=== PATIENT | female | born 1945 | race Caucasian/White ===

== ENCOUNTER → 2018-07-21 10:20 | Outpatient (CLI) | payer MEDICARE, OTHER, SELFPAY ==
--- NOTE | 2018-07-21 10:25 | DI.MG.S_ITS ---
BILATERAL DIGITAL SCREENING MAMMOGRAM 3D/2D WITH CAD: 07/21/2018 CLINICAL: Routine screening. Family history of breast cancer. Comparison is made to exams dated: 11/28/2014 mammogram, 12/02/2013 mammogram, and 11/30/2012 mammogram - [facility]. There are scattered fibroglandular elements in both breasts. Current study was also evaluated with a Computer Aided Detection (CAD) system. No significant masses, calcifications, or other findings are seen in either breast. There has been no significant interval change. IMPRESSION: NEGATIVE There is no mammographic evidence of malignancy. A 1 year screening mammogram is recommended. This exam was interpreted at Station ID: [id number]. NOTE: For mammograms, a report in lay terms will be sent to the patient. Approximately 15% of breast malignancies will not be visualized mammographically. In the management of a palpable breast mass, a negative mammogram must not discourage biopsy of a clinically suspicious lesion. Electronically Signed By: Juan J faulkner/edin:07/21/2018 16:44:02 letter sent: Normal Exam ACR BI-RADS Category 1: Negative 3341F
== END ==
PROVIDERS: Family Provider Family Medicine; PCP Family Medicine; Visit Provider Family Medicine
DX: Z12.31 Encounter for screening mammogram for malignant neoplasm of breast (principal); Z80.3 Family history of malignant neoplasm of breast
CPT/HCPCS: 77063; 77067

== ENCOUNTER → 2020-11-22 11:06 | Outpatient (CLI) | payer MEDICARE, OTHER, SELFPAY ==
[2020-11-22 19:55] LABS: Alanine Aminotransferase 35 IU/L (<35); Albumin 3.8 g/dL (3.5-5.0); Albumin Globulin Ratio 1.4 (1.0-2.8); Alkaline Phosphatase 67 U/L (38-126); Aspartate Aminotransferase 38 IU/L (14-36); BUN Creatinine Ratio 23.9 (6-22); Bilirubin Total 0.4 mg/dL (0.2-1.3); Blood Urea Nitrogen 16 mg/dL (7-17); Calcium 9.5 mg/dL (8.4-10.2); Carbon Dioxide 24 mmol/L (22-32); Chloride 106 mmol/L (98-107); Estimated Glomerular Filt Rate > 60.0 mL/min (>60); Globulin 2.7 g/dL (1.7-4.1); Glucose 88 mg/dL (80-110); HEMOLYSIS < 15 (0-50); Magnesium 1.9 mg/dL (1.6-2.3); Potassium 4.4 mmol/L (3.4-5.1); Sodium 135 mmol/L (137-145); Total Protein 6.5 g/dL (6.3-8.2)
[2020-11-22 20:26] LABS: Thyroid Stimulating Hormone 0.817 uIU/mL (0.47-4.68)
== END ==
PROVIDERS: Family Provider Family Medicine; PCP Family Medicine; Visit Provider Nurse Practitioner Family
DX: I48.0 Paroxysmal atrial fibrillation (principal); Z22.1 Carrier of other intestinal infectious diseases
CPT/HCPCS: 80053; 83735; 84443

== ENCOUNTER → 2021-09-10 12:30 | Outpatient (CLI) | payer MEDICARE, OTHER, SELFPAY ==
[2021-09-10 19:16] LABS: Cholesterol 179 mg/dL (140-199); HDL Cholesterol 91 mg/dL (40-60); LDL Cholesterol Calculated 60 mg/dL (<100); Triglycerides 141 mg/dL (35-150)
[2021-09-10 19:17] LABS: Alanine Aminotransferase 32 IU/L (<35); Albumin 4.1 g/dL (3.5-5.0); Albumin Globulin Ratio 1.5 (1.0-2.8); Alkaline Phosphatase 59 U/L (38-126); Aspartate Aminotransferase 39 IU/L (14-36); BUN Creatinine Ratio 23.9 (6-22); Bilirubin Total 0.6 mg/dL (0.2-1.3); Blood Urea Nitrogen 17 mg/dL (7-17); Calcium 9.4 mg/dL (8.4-10.2); Carbon Dioxide 26 mmol/L (22-32); Chloride 106 mmol/L (98-107); Estimated Glomerular Filt Rate > 60.0 mL/min (>60); Globulin 2.8 g/dL (1.7-4.1); Glucose 85 mg/dL (80-110); HEMOLYSIS 18 (0-50); Magnesium 1.9 mg/dL (1.6-2.3); Potassium 4.1 mmol/L (3.4-5.1); Sodium 138 mmol/L (137-145); Total Protein 6.9 g/dL (6.3-8.2)
[2021-09-10 19:38] LABS: Thyroid Stimulating Hormone 1.59 uIU/mL (0.47-4.68)
== END ==
PROVIDERS: Nurse Practitioner Family; Family Provider Family Medicine; PCP Family Medicine; Visit Provider Family Medicine
DX: E78.5 Hyperlipidemia, unspecified (principal); I48.20 Chronic atrial fibrillation, unspecified; I48.0 Paroxysmal atrial fibrillation
CPT/HCPCS: 80053; 80061; 83735; 84443

== ENCOUNTER → 2021-10-26 09:20 | Outpatient (CLI) | payer MEDICARE, OTHER, SELFPAY ==
[2021-10-26 18:26] LABS: Add Manual Diff / Slide Review NO; Basophils Absolute Auto 0 /uL (0-100); Basophils Percent Auto 0.8 % (0-2); Eosinophils Absolute Auto 200 /uL (0-450); Eosinophils Percent Auto 2.9 % (2-4); Hemoglobin 14.1 g/dL (12.0-16.0); Lymphocytes Absolute Auto 900 /uL (1100-4500); Lymphocytes Percent Auto 16.8 % (25-40); Mean Corpuscular HGB Conc 34.3 % (30-36); Mean Corpuscular Hemoglobin 32.2 PG (26-34); Mean Corpuscular Volume 93.7 fL (80-100); Monocytes Absolute Auto 400 /uL (0-900); Monocytes Percent Auto 7.1 % (3-14); Neutrophils Absolute Auto 3700 /uL (1500-7000); Neutrophils Percent Auto 72.4 % (50-75); Platelet Count 191 X10^3/uL (150-400); Red Blood Cell Count 4.38 X10^6/uL (4.0-5.2); Red Cell Distribution Width 14.3 % (11.6-14.8); White Blood Cell Count 5.1 X10^3/uL (4.5-11.0)
[2021-10-26 18:32] LABS: Alanine Aminotransferase 37 IU/L (<35); Albumin Globulin Ratio 1.6 (1.0-2.8); Alkaline Phosphatase 62 U/L (38-126); Aspartate Aminotransferase 41 IU/L (14-36); BUN Creatinine Ratio 25.8 (6-22); Bilirubin Total 0.6 mg/dL (0.2-1.3); Blood Urea Nitrogen 17 mg/dL (7-17); Calcium 9.2 mg/dL (8.4-10.2); Carbon Dioxide 25 mmol/L (22-32); Chloride 106 mmol/L (98-107); Estimated Glomerular Filt Rate > 60 mL/min (>60); Globulin 2.5 g/dL (1.7-4.1); Glucose 92 mg/dL (80-110); HEMOLYSIS < 15 (0-50); Potassium 4.2 mmol/L (3.4-5.1); Sodium 138 mmol/L (137-145); Total Protein 6.5 g/dL (6.3-8.2)
== END ==
PROVIDERS: Family Provider Family Medicine; PCP Family Medicine; Referring Provider Physician Assistant; Visit Provider Physician Assistant
DX: Z87.19 Personal history of other diseases of the digestive system (principal); R53.83 Other fatigue; E78.5 Hyperlipidemia, unspecified; R74.01 Elevation of levels of liver transaminase levels
CPT/HCPCS: 80053; 85025

== ENCOUNTER → 2021-11-28 12:30 | Outpatient (CLI) | payer MEDICARE, OTHER, SELFPAY | PROVIDERS: Family Provider Family Medicine; PCP Physician Assistant; Referring Provider Physician Assistant; Visit Provider Physician Assistant | DX: M81.0 Age-related osteoporosis without current pathological fracture (principal); M85.851 Other specified disorders of bone density and structure, right thigh | CPT/HCPCS: 77080 ==

== ENCOUNTER → 2022-05-28 13:49 | Outpatient (CLI) | payer MEDICARE, OTHER, SELFPAY ==
[2022-05-28 20:02] LABS: Add Manual Diff / Slide Review NO; Basophils Absolute Auto 0 /uL (0-100); Basophils Percent Auto 0.5 % (0-2); Eosinophils Absolute Auto 100 /uL (0-450); Eosinophils Percent Auto 2.1 % (2-4); Hematocrit 42.9 % (36-46); Hemoglobin 14.2 g/dL (12.0-16.0); Lymphocytes Absolute Auto 1000 /uL (1100-4500); Mean Corpuscular HGB Conc 33.2 % (30-36); Mean Corpuscular Hemoglobin 31.8 PG (26-34); Monocytes Absolute Auto 400 /uL (0-900); Monocytes Percent Auto 6.8 % (3-14); Neutrophils Absolute Auto 3900 /uL (1500-7000); Neutrophils Percent Auto 71.6 % (50-75); Platelet Count 243 X10^3/uL (150-400); Red Blood Cell Count 4.46 X10^6/uL (4.0-5.2); Red Cell Distribution Width 15.2 % (11.6-14.8); White Blood Cell Count 5.4 X10^3/uL (4.5-11.0)
[2022-05-28 20:18] LABS: Alanine Aminotransferase 36 IU/L (<35); Albumin 4.2 g/dL (3.5-5.0); Albumin Globulin Ratio 1.3 (1.0-2.8); Alkaline Phosphatase 52 U/L (38-126); Aspartate Aminotransferase 55 IU/L (14-36); BUN Creatinine Ratio 22.7 (6-22); Blood Urea Nitrogen 15 mg/dL (7-17); Calcium 8.8 mg/dL (8.4-10.2); Carbon Dioxide 28 mmol/L (22-32); Chloride 102 mmol/L (98-107); Estimated Glomerular Filt Rate > 60 mL/min (>60); Globulin 3.2 g/dL (1.7-4.1); Glucose 86 mg/dL (80-110); Sodium 136 mmol/L (137-145); Total Protein 7.4 g/dL (6.3-8.2)
[2022-05-28 20:29] LABS: HEMOLYSIS 176 (0-50); Potassium 4.3 mmol/L (3.4-5.1)
== END ==
PROVIDERS: Family Provider Family Medicine; PCP Physician Assistant; Visit Provider Physician Assistant
DX: Z87.19 Personal history of other diseases of the digestive system (principal); R74.8 Abnormal levels of other serum enzymes
CPT/HCPCS: 80053; 85025

== ENCOUNTER → 2022-08-01 13:38 | Outpatient (CLI) | payer MEDICARE, OTHER, SELFPAY ==
[2022-08-01 19:32] LABS: Hemoglobin A1C% w Est Avg Glu 5.6 % (4.0-6.0)
[2022-08-01 20:20] LABS: Hepatitis B Surface Antigen NEGATIVE s/c (NEGATIVE)
[2022-08-01 20:33] LABS: Hep C Virus Ab w/Reflex Quant NEGATIVE s/c (NEGATIVE)
[2022-08-03 02:08] LABS: Hepatitis A Ab Total Negative (Negative)
[2022-08-03 04:09] LABS: Hepatitis B Core AB w/Reflex Negative (Negative)
== END ==
PROVIDERS: Family Provider Family Medicine; PCP Physician Assistant; Visit Provider Physician Assistant
DX: Z13.1 Encounter for screening for diabetes mellitus (principal); R74.8 Abnormal levels of other serum enzymes
CPT/HCPCS: 83036; 86704; 86708; 86803; 87340

== ENCOUNTER → 2023-01-02 13:00 | Outpatient (CLI) | payer MEDICARE, OTHER, SELFPAY ==
[2023-01-02 20:21] LABS: Alanine Aminotransferase 29 IU/L (<35); Albumin 3.8 g/dL (3.5-5.0); Albumin Globulin Ratio 1.2 (1.0-2.8); Alkaline Phosphatase 53 U/L (38-126); Aspartate Aminotransferase 55 IU/L (14-36); Bilirubin Total 0.4 mg/dL (0.2-1.3); Blood Urea Nitrogen 16 mg/dL (7-17); Calcium 8.9 mg/dL (8.4-10.2); Carbon Dioxide 30 mmol/L (22-32); Chloride 104 mmol/L (98-107); Estimated Glomerular Filt Rate > 60 mL/min (>60); Globulin 3.1 g/dL (1.7-4.1); Glucose 93 mg/dL (80-110); HEMOLYSIS 16 (0-50); Potassium 4.1 mmol/L (3.4-5.1); Sodium 138 mmol/L (137-145); Total Protein 6.9 g/dL (6.3-8.2)
== END ==
PROVIDERS: Family Provider Family Medicine; PCP Physician Assistant; Visit Provider Physician Assistant
DX: I48.0 Paroxysmal atrial fibrillation (principal); Z51.81 Encounter for therapeutic drug level monitoring; Z79.899 Other long term (current) drug therapy; R74.8 Abnormal levels of other serum enzymes
CPT/HCPCS: 80053

== ENCOUNTER → 2023-04-15 10:44 | Outpatient (CLI) | payer MEDICARE, OTHER, SELFPAY ==
--- NOTE | 2023-04-15 | DI.MG.S_ITS ---
UNILATERAL LEFT DIGITAL DIAGNOSTIC MAMMOGRAM 3D/2D WITH ADDITIONAL VIEWS: 04/15/2023 CLINICAL: Additional evaluation requested from prior study. Comparison is made to exams dated: 03/08/2023 mammogram, 03/11/2022 mammogram, 03/12/2021 mammogram - Outside facility, and 07/21/2018 mammogram - [facility]. There are scattered areas of fibroglandular density in the left breast (category b / 25%-50% glandular tissue). There is a 0.3 cm oval focal asymmetry with a circumscribed margin in the left breast at 8 o'clock posterior depth. This is seen in additional views. This is increased in size. No other significant masses or calcifications are seen in the breast. IMPRESSION: INCOMPLETE: NEEDS ADDITIONAL IMAGING EVALUATION The 0.3 cm oval focal asymmetry in the left breast resembles a cyst and is indeterminate. An ultrasound is recommended. Based on the Tyrer Cuzick model (a risk assessment model) the patient's lifetime risk is 4.7% and her 10 year risk is 0.0%. According to the ACR, ACS, and NCCN guidelines, an annual breast MRI exam along with mammogram is recommended if the patient's lifetime risk is 20% or greater. This exam was interpreted at Station ID: [id number]. NOTE: For mammograms, a report in lay terms will be sent to the patient. Approximately 15% of breast malignancies will not be visualized mammographically. In the management of a palpable breast mass, a negative mammogram must not discourage biopsy of a clinically suspicious lesion. Electronically Signed By: Artemio mckeon/edin:04/15/2023 21:11:38 ACR BI-RADS Category 0: Incomplete 3340F
--- NOTE | 2023-04-15 10:46 | DI.US.S_ITS ---
PROCEDURE: US ABDOMEN LIMITED INDICATIONS: elevated liver enzymes TECHNIQUE: Real-time scanning was performed of the abdominal and retroperitoneal organs, with image documentation. COMPARISON: None. FINDINGS: Liver: Liver is normal in size and homogeneous in echotexture. Gallbladder: No stones or sludge. Normal wall thickness. No pericholecystic fluid. Biliary ducts: Intrahepatic bile ducts are non-dilated. Extrahepatic bile duct caliber measures 4 mm. Normal is 6-7 mm or less in diameter, or 10 mm or less post-cholecystectomy. Pancreas: Hypoechoic mass in the pancreatic body measuring 2.4 x 1.4 x 1.7 cm with internal vascularity. IVC: Intrahepatic inferior vena cava is patent. Miscellaneous: No free abdominal fluid. IMPRESSION: 1. Hypoechoic mass in the pancreatic body measuring 2.4 x 1.4 x 1.7 cm which is indeterminate. Recommend a CT or MRI (pancreas mass protocol) for further evaluation. 2. Normal sonographic appearance of the liver. 3. No biliary ductal dilatation. Dictated by: Aguila Wahl M.D. on 04/15/2023 at 15:26 Approved by: Aguila Wahl M.D. on 04/15/2023 at 15:39
--- NOTE | 2023-04-15 10:46 | DI.US.S_ITS ---
LIMITED ULTRASOUND OF LEFT BREAST: 04/15/2023 CLINICAL: Patient returns today to evaluate a focal asymmetry in the left breast. Comparison is made to exams dated: 04/15/2023 mammogram - [facility], 03/08/2023 mammogram, 03/11/2022 mammogram, 03/12/2021 mammogram - Outside facility, and 07/21/2018 mammogram - [facility]. Real-time ultrasound of the left breast 8-9 o'clock region was performed. Damon scale images of the real-time examination were reviewed. No significant abnormalities were seen sonographically in the left breast. IMPRESSION: PROBABLY BENIGN There is no abnormality seen in the left breast to correspond with the mammography finding. A follow-up left mammogram and possible ultrasound in 6 months is recommended to demonstrate stability. This exam was interpreted at Station ID: [id number]. Electronically Signed By: Artemio Mirza M.D. ar/:04/15/2023 21:13:37 letter sent: Followup Recommended Ultrasound BI-RADS: 3 Probably benign
== END ==
PROVIDERS: Family Provider Family Medicine; PCP Family Medicine; Referring Provider Physician Assistant; Visit Provider Physician Assistant
DX: R92.8 Other abnormal and inconclusive findings on diagnostic imaging of breast (principal); Z80.3 Family history of malignant neoplasm of breast; K86.9 Disease of pancreas, unspecified; R74.8 Abnormal levels of other serum enzymes
CPT/HCPCS: 76642; 76705; 77065; 77066; G0279

== ENCOUNTER → 2023-04-25 10:49 | Outpatient (CLI) | payer MEDICARE, OTHER, SELFPAY ==
--- NOTE | 2023-04-25 | DI.MRI.S_ITS ---
PROCEDURE: MR AB PANCREATIC/MRCP PROTOCOL INDICATIONS: MASS OF PANCREAS TECHNIQUE: Coronal HASTE through the abdomen, axial 2-D FLASH in- and [id number], and breath-hold T2 FSE with fat saturation through the biliary system and pancreas. Oblique coronal and axial thin-slice HASTE, radial thick-slab HASTE centered on the extrahepatic bile ducts. Intravenous secretin: Not requested. COMPARISON: [facility], , ABDOMEN LIMITED, 04/15/2023, 12:53. FINDINGS: Image quality: Excellent. Pancreas and biliary system: Intra- and extra-hepatic biliary ducts are non dilated. Pancreas is normal in morphology, without adjacent soft tissue edema. Pancreatic duct is normal in caliber, without developmental anomalies. No pancreatic mass or cystic lesion. The abnormality seen on prior ultrasound corresponds to bowel. The distal stomach is immediately anterior to the pancreas and there are duodenal diverticuli. Gallbladder is distended. No pericholecystic fluid. No gallstones identified. Other solid organs: Liver is normal in size. Spleen is normal in size. No adrenal nodules. Both kidneys are normal in size, without hydronephrosis. Nodes and vessels: No retroperitoneal or mesenteric adenopathy by size criteria. Aorta and inferior vena cava are normal in size. Bowel and peritoneum: Right lower quadrant ostomy. Unenhanced bowel loops are normal in caliber. Colonic diverticuli. No free fluid. Lung bases: No basal pleural effusions. Heart size is normal. Bones and soft tissues: No ventral hernias. Bone marrow is of normal overall signal. IMPRESSION: 1. No pancreatic mass or cystic lesion. No suspicious enhancement. Abnormality seen on ultrasound is due to adjacent bowel. 2. No pancreatic or biliary ductal dilatation. 3. Right lower quadrant ostomy. Dictated by: Franky Call M.D. on 04/25/2023 at 13:38 Approved by: Franky Call M.D. on 04/25/2023 at 13:49
== END ==
PROVIDERS: Family Provider Family Medicine; PCP Family Medicine; Referring Provider Family Medicine; Visit Provider Family Medicine
DX: K86.89 Other specified diseases of pancreas (principal)
CPT/HCPCS: 74183; A9579

== ENCOUNTER → 2023-07-14 13:26 | Outpatient (CLI) | payer MEDICARE, OTHER, SELFPAY ==
[2023-07-14 20:10] LABS: Add Manual Diff / Slide Review NO; Basophils Absolute Auto 0 /uL (0-100); Basophils Percent Auto 0.8 % (0-2); Eosinophils Absolute Auto 100 /uL (0-450); Eosinophils Percent Auto 3.1 % (2-4); Hematocrit 42.1 % (36-46); Hemoglobin 14.1 g/dL (12.0-16.0); Lymphocytes Absolute Auto 1000 /uL (1100-4500); Lymphocytes Percent Auto 22.1 % (25-40); Mean Corpuscular HGB Conc 33.5 % (30-36); Mean Corpuscular Hemoglobin 32.9 PG (26-34); Monocytes Absolute Auto 400 /uL (0-900); Monocytes Percent Auto 9.3 % (3-14); Neutrophils Absolute Auto 3000 /uL (1500-7000); Neutrophils Percent Auto 64.7 % (50-75); Platelet Count 189 X10^3/uL (150-400); Red Cell Distribution Width 14.6 % (11.6-14.8); White Blood Cell Count 4.6 X10^3/uL (4.5-11.0)
[2023-07-14 20:11] LABS: HEMOLYSIS < 15 (0-50)
[2023-07-14 20:16] LABS: Alanine Aminotransferase 26 IU/L (<35); Albumin 3.9 g/dL (3.5-5.0); Albumin Globulin Ratio 1.5 (1.0-2.8); Alkaline Phosphatase 41 U/L (38-126); Aspartate Aminotransferase 34 IU/L (14-36); BUN Creatinine Ratio 26.3 (6-22); Bilirubin Total 0.6 mg/dL (0.2-1.3); Blood Urea Nitrogen 20 mg/dL (7-17); Calcium 9.3 mg/dL (8.4-10.2); Carbon Dioxide 27 mmol/L (22-32); Chloride 104 mmol/L (98-107); Estimated Glomerular Filt Rate > 60 mL/min (>60); Globulin 2.6 g/dL (1.7-4.1); Glucose 112 mg/dL (80-110); Potassium 3.9 mmol/L (3.4-5.1); Sodium 138 mmol/L (137-145); Total Protein 6.5 g/dL (6.3-8.2)
[2023-07-14 20:47] LABS: TSH w/ Reflex to FT4 1.05 uIU/mL (0.47-4.68)
[2023-07-14 22:51] LABS: LDL Cholesterol Direct 92 mg/dL (<100)
[2023-07-15 08:28] LABS: Vitamin D 25 Hydroxy (D3) 52.7 ng/mL (30.0-100.0)
== END ==
PROVIDERS: Family Provider Family Medicine; PCP Family Medicine; Visit Provider Family Medicine
DX: R74.8 Abnormal levels of other serum enzymes (principal); I48.0 Paroxysmal atrial fibrillation; M81.0 Age-related osteoporosis without current pathological fracture; Z79.01 Long term (current) use of anticoagulants; E78.5 Hyperlipidemia, unspecified
CPT/HCPCS: 80053; 82306; 83721; 84443; 85025

== ENCOUNTER → 2023-10-15 10:48 | Outpatient (CLI) | payer MEDICARE, OTHER, SELFPAY ==
--- NOTE | 2023-10-15 10:50 | DI.MG.S_ITS ---
UNILATERAL LEFT DIGITAL DIAGNOSTIC MAMMOGRAM 3D/2D: 10/15/2023 CLINICAL: Patient returns for a 6 month follow up of the left breast. Comparison is made to exams dated: 04/15/2023 mammogram - [facility], 03/08/2023 mammogram, 03/11/2022 mammogram, and 03/12/2021 mammogram - Outside facility. There are scattered areas of fibroglandular density in the left breast (category b / 25%-50% glandular tissue). There is a mass in the left breast at 9 o'clock posterior depth. No other significant masses or calcifications are seen in the breast. IMPRESSION: INCOMPLETE: NEEDS ADDITIONAL IMAGING EVALUATION The mass in the left breast is indeterminate. A targeted ultrasound of the left breast is recommended and will be performed immediately following this exam. Based on the Tyrer Cuzick model (a risk assessment model) the patient's lifetime risk is 4.7% and her 10 year risk is 0.0%. According to the ACR, ACS, and NCCN guidelines, an annual breast MRI exam along with mammogram is recommended if the patient's lifetime risk is 20% or greater. This exam was interpreted at Station ID: [id number]. NOTE: For mammograms, a report in lay terms will be sent to the patient. Approximately 15% of breast malignancies will not be visualized mammographically. In the management of a palpable breast mass, a negative mammogram must not discourage biopsy of a clinically suspicious lesion. Electronically Signed By: Bettie cosby/:10/15/2023 12:29:23 ACR BI-RADS Category 0: Incomplete 3340F
--- NOTE | 2023-10-15 10:50 | DI.US.S_ITS ---
LIMITED ULTRASOUND OF LEFT BREAST AND AXILLA: 10/15/2023 CLINICAL: Patient returns today to evaluate an asymmetry in the left breast. Comparison is made to exams dated: 10/15/2023 mammogram, 04/15/2023 ultrasound, 04/15/2023 mammogram - [facility], 03/08/2023 mammogram, and 03/11/2022 mammogram - Outside facility. Color flow and real-time ultrasound of the left breast 9 o'clock, and axilla regions were performed on the areas of interest. Damon scale images of the real-time examination were reviewed. There is a 0.2 cm x 0.2 cm x 0.2 cm mass in the left breast at 9 o'clock posterior depth. This mass displays internal echoes. This may correlate with mammography findings. The left axilla was interogated and normal appearing lymph nodes are visualized. IMPRESSION: SUSPICIOUS OF MALIGNANCY The 0.2 cm x 0.2 cm x 0.2 cm mass in the left breast is at a low suspicion for malignancy. Given the poor visualization sonographically, a stereotactic biopsy is recommended. This exam was interpreted at Station ID: [id number]. SUMMARY: This was discussed with the patient by the radiologist at the time of the exam. Electronically Signed By: Bettie cosby/:10/15/2023 13:05:55 letter sent: Biopsy Required Ultrasound BI-RADS: 4a Low suspicion for malignancy
== END ==
LOC: MAMMO 10:50
PROVIDERS: Family Provider Family Medicine; PCP Family Medicine; Referring Provider Family Medicine; Visit Provider Family Medicine
DX: R92.8 Other abnormal and inconclusive findings on diagnostic imaging of breast (principal); N63.25 Unspecified lump in the left breast, overlapping quadrants; R92.322 Mammographic fibroglandular density, left breast
CPT/HCPCS: 76642; 77065; G0279

== ENCOUNTER → 2023-11-13 11:16 | Outpatient (CLI) | payer MEDICARE, OTHER, SELFPAY ==
--- NOTE | 2023-11-13 11:19 | DI.MRI.S_ITS ---
BREAST MRI OF BOTH BREASTS: 11/13/2023 CLINICAL: New diagnosis of Breast Cancer. PROCEDURE: MR BREAST BI WO/W CON INDICATIONS: new left breast cancer, strong FHX TECHNIQUE: The patient was placed prone in a dedicated breast imaging coil. Precontrast axial STIR and 3D FLASH without fat saturation sequences were obtained. Both before and after bolus injection of contrast, sequential 1-minute axial 3D FLASH with fat saturation sequences for 3 time points, with subtraction images and maximum intensity projections (MIP's) generated. Delayed sagittal FLASH images with fat saturation were also obtained. Computer-aided detection, including computer algorithm analysis of MRI image data for lesion detection and characterization, pharmacokinetic analysis, with further physician review for interpretation, was performed. COMPARISON: Mammogram 11/04/2023, 10/15/2023, 04/15/2023. Breast ultrasound 10/15/2023 FINDINGS: Image quality: Diagnostic. There is scattered amount of fibroglandular tissue. There is minimal and symmetric background parenchymal enhancement. Right breast: There is no suspicious enhancement or lymphadenopathy. Left breast: In the left breast, lower inner quadrant at posterior depth, there is a biopsy clip with minimal surrounding enhancement corresponding to biopsy proven malignancy (described on prior mammogram at 9:00 posterior depth). No suspicious lymphadenopathy. IMPRESSION: KNOWN BIOPSY PROVEN MALIGNANCY Left breast biopsy proven malignancy in the lower inner quadrant at posterior depth corresponding to biopsy clip with minimal surrounding enhancement. No suspicious left lymphadenopathy. No MRI evidence of malignancy in the right breast. This exam was interpreted at Station ID: [id number]. Electronically Signed By: Isabella White M.D., Ph.D. eb/:11/14/2023 12:59:42 ACR BI-RADS Category 6: Known biopsy proven malignancy 3346F
== END ==
PROVIDERS: Family Provider Family Medicine; PCP Family Medicine; Referring Provider Family Medicine; Visit Provider Family Medicine
DX: C50.312 Malignant neoplasm of lower-inner quadrant of left female breast (principal)
CPT/HCPCS: 77049; A9579

== ENCOUNTER 2023-12-03 07:51 | Day surgery (SDC) | payer MEDICARE, OTHER, SELFPAY ==
[2023-12-01 12:38] VITALS: BMI 23.9
--- NOTE | 2023-12-03 | DI.MG.S_ITS ---
SPECIMEN LEFT BREAST: 12/03/2023 CLINICAL: Left breast specimen. Correlation is made to exams dated: 12/03/2023 localization, 12/03/2023 ultrasound, 11/13/2023 breast MRI - [facility], and 10/28/2023 stereotactic biopsy - [facility]. A specimen was imaged for the previous biopsy site located in the left breast at 9 o'clock posterior depth. This was described on the previous mammography report. IMPRESSION: SPECIMEN The imaged specimen includes the distal portion of the localization wire and does not include biopsy clip. This exam was interpreted at Station ID: [id number]. Lance ann/edin:12/03/2023 13:09:29
--- NOTE | 2023-12-03 | DI.MG.S_ITS ---
DIGITAL MAMMOGRAPHY GUIDED WIRE LOCALIZATION LEFT BREAST WITH POST DIGITAL MAMMOGRAPHIC IMAGIN12/03/2023 CLINICAL: Left breast wire localization. Correlation is made to exams dated: 10/28/2023 stereotactic biopsy - [facility], 10/15/2023 mammogram, 04/15/2023 mammogram - [facility], 03/08/2023 mammogram, and 03/11/2022 mammogram - Outside facility. A wire localization using digital mammography guidance was performed for the marker clip located in the left breast at 9 o'clock posterior depth. The skin was prepped in the usual manner. Local anesthetic was administered to the access site. A small incision was made in the breast. The localization was approached from the lateral aspect. A wire was inserted adjacent to the marker under digital mammography guidance. Post placement digital mammographic imaging demonstrates the tip demarcates the boundaries adjacent to the marker. IMPRESSION: WIRE LOCALIZATION Wire localization for the marker clip in the left breast at 9 o'clock posterior depth was successful with no apparent post procedure complications. This exam was interpreted at Station ID: [id number]. Lance ann/edin:12/03/2023 13:15:58
--- NOTE | 2023-12-03 | PATH_ITS ---
[facility] Accession Number: [id number] No. of containers..02 Tissue . 01 Material submitted: . PART A: breast - LEFT BREAST LUMP,SHORT SUPERIOR,LEFT LATERAL PART B: breast - LEFT BREAST LUMP,SEE COLOR CODED MARGIN MARKER . 01 Diagnosis: A. LEFT BREAST, LUMPECTOMY: Ductal carcinoma in situ, see CAP summary data below. . B. LEFT BREAST, LUMPECTOMY, RE-EXCISION: Ductal carcinoma in situ, see CAP summary data below. . . CASE SUMMARY (INVASIVE CARCINOMA OF BREAST: RESECTION 4.10.0.0) . Procedure: Excision: Specimen laterality: Left. Tumor site: 9 o'clock. Histologic type: Invasive ductal carcinoma, See comment. Histologic grade ([place] Histologic Score) Glandular/tubular differentiation: Score 2, per report. Nuclear pleomorphism: Score 2, per report. Mitotic rate: Score 1, per report. Overall grade: Grade 1, per report. Tumor size: Greatest dimension of largest invasive focus: 4 mm, per report (see comment). Tumor focality: Single focus of invasive carcinoma. . Ductal carcinoma in situ: Present. Negative for extensive intraductal component. Extent of DCIS: Estimated extent is at least 35 mm. Architectural patterns: Cribriform, solid. Nuclear grade: Grade 2 (intermediate). Necrosis: Present, central. Number of blocks with DCIS: 12. Number of blocks examined: 51. . Lymphatic and/or vascular invasion: Not identified. Microcalcifications: Present in nonneoplastic tissue. Treatment effect in the breast: No known presurgical therapy. . Margin status for invasive carcinoma: Not applicable (residual invasive carcinoma in specimen is absent). Margin status for DCIS: All margins negative for DCIS. Distance from DCIS to closest margin: 4 mm, anterior. Regional lymph node status: Not applicable. Distant metastasis: Not applicable. . pTNM Clssification (AJCC 8th Edition) pT category: pT1a (per report). pN category: pN not assigned. . Additional findings: Biopsy site changes present. . Breast biomarker testing performed on previous biopsy: ([id number], [employer]): Estrogen receptor status: Positive (3+, 100% of cells). Progesterone receptor status: Positive (3+, 70% of cells). HER2 status: Negative for HER2 overexpression (0+, 0% of cells). Ki-67: Intermediate (10-15%). [facility] 12/11/2023 1655 Local . 01 Comment: Only ductal carcinoma in situ is identified in the excision specimens. In block A17, there is a small discohesive collection of neoplastic cells at the edge of the tissue with features similar to the DCIS, and is favored to represent detached, fragmented DCIS. There is no definite evidence of invasive carcinoma. The information provided in the CAP summary data applicable to the invasive carcinoma is based on the patient's prior biopsy results collected 10/28/2023. . 01 Electronically signed: . Jen Greco MD, Pathologist NPI- [id number] . 01 Gross description: . A. Received: In formalin with two identifiers and left breast lump, short superior, long lateral. Specimen: An oriented left lumpectomy. Weight: 47 grams. Measurement: 7.0 cm superior to inferior, 6.1 cm anterior to posterior, 2.4 cm medial to lateral. Skin ellipse: Absent. Wire: Absent. Margins: Oriented by the surgeon with a short suture designating superior and a long suture designating lateral per the requisition, and inked as follows: anterior green, inferior blue, lateral orange, medial yellow, posterior black, superior red. Sliced: Superior to inferior into 11 slices. Lesions: No lesions or biopsy clips are identified. Other: The cut surfaces are yellow to white fibroadipose tissue with fibrous tissue occupying approximately 10% of the cut surface. Fixation: The specimen was removed on 12/03/2023, time not provided. Cold ischemic time cannot be calculated. Total fixation time is approximately 65 hours following additional fixation. Chief Steward/Stewardess sections are submitted as follows: A1-A2: Rep slice 1 perpendicular. A3: Rep slice 2. A4-A5: Composite slice 3. A6: Rep slice 4. A7-A8: Entire slice 5. A9: Rep slice 6. A10-A11: Composite slice 7. A12: Rep slice 8. A13-A14: Composite slice 9. A15: Rep slice 10. A16-A17: Rep slice 11 perpendicular. Additional sections are submitted as follows: A18: Remaining slice 8. A19-A20: Remaining slice 10. A21-A23: Remaining slice 11 perpendicular. ([id number]) . B. Received: In formalin with two identifiers and left breast lump. Specimen: A previously inked left lumpectomy. Weight: 44 grams. Measurement: 11.1 cm from superior to inferior, 4.5 cm medial to lateral, 2.4 cm anterior to posterior. Wire: Present, minimally attached at the edge of the medial margin inserted inferiorly and terminating superiorly. Margins: Inked by the surgeon as follows: anterior green, inferior blue, lateral orange, medial yellow, posterior black, superior red. Inking reinforced at the bench. Sliced: From superior to inferior into 16 slices. Lesion: Despite an extensive search, no lesion can be definitively identified and no biopsy clip is identified. Other: The cut surfaces are yellow to white fibroadipose tissue with fibrous tissue occupying less than 10% of the cut surface. Fixation: The specimen was removed on 12/03/2023, time not provided. Cold ischemic time cannot be calculated. Total fixation time is approximately 65 hours following additional fixation. Specimen is submitted entirely as follows: B1-B2: Entire slice 1 perpendicular. B3-B9: Intact slices 2-8 sequential. B10-B11: Composite slice 9. B12-B13: Composite slice 10. B14-B15: Composite slice 11. B16-B17: Composite slice 12. B18-B19: Composite slice 13. B20-B21: Composite slice 14. B22-B24: Composite slice 15. B26-B28: Entire slice 16 perpendicular. ([id number]) /MRV 12/09/2023 1726 Local . 01 Microscopic: . Immunohistochemical stains were performed on blocks A15, A17, A19, A23, and B25, to characterize cells of interest. Myosin and p63 stains on these blocks highlight myoepithelial cells surrounding cells of interest, consistent with ductal carcinoma in situ. There is no definite evidence of invasive carcinoma. All control stains showed appropriate reactivity. . * This test was developed and its performance characteristics determined by [facility]. It has not been cleared or approved by the U.S. Food and Drug Administration. The FDA has determined that such clearance or approval is not necessary. This test is used for clinical purposes. It should not be regarded as investigational or for research. . 01 Pathologist provided ICD-10: C50.919 . 01 CPT . 631479, 337057, U97462, E58516 Specimen Comment: A courtesy copy of this report has been sent to [phone] Performed at: [address] [address], [place], [place] [id number] MD Juan J Carrero MD Phone: [phone]
[2023-12-03 08:30] VITALS: BP 128/81; PULSE 74; RESP 16; TEMP 36.2; O2SAT 97
--- NOTE | 2023-12-03 08:48 | PM.PREOP ---
Pre-operative Note Interval Note History & Physical reviewed/Exam performed by Physician: Yes Changes to H&P: No
[2023-12-03 08:53] VITALS: BMI 23.9
--- NOTE | 2023-12-03 09:07 | SUR.PREOP ---
0900 - Pt to radiology via wheelchair.
[2023-12-03] MEDS: CLINDAMYCIN 900 MG/50 ML PIGGYBACK 50 MG IV (11:28)
--- NOTE | 2023-12-03 11:40 | SUR.OPER ---
Supine on padded OR bed, head on pillow, arms secured on padded arm boards at <90 degrees abduction, legs uncrossed, safety belt at thigh, tape over blanket over lower legs.
[2023-12-03] MEDS: BUPIVACAINE 0.25% (PF) VIAL 30 ML INJ (12:02)
[2023-12-03 12:31] VITALS: BP 122/71; PULSE 72; RESP 15; TEMP 36.1; O2SAT 95
[2023-12-03 12:41] VITALS: BP 118/83; PULSE 67; RESP 15; O2SAT 94
--- NOTE | 2023-12-03 12:41 | PM.OP.1 ---
Operative Date/Time/Diagnoses Date of procedure: 12/03/23 Time of procedure: 12:41 Pre-op diagnosis: Left breast cancer Post-op diagnosis: same Procedure & Clinicians Procedure: Left lumpectomy Same procedure as scheduled: Yes Indications: 78 y.o woman with 0.4cm hormone positive HER2 negative low grade breast cancer. Surgeon: Estiven Dial [employer]ocational [employer] Education Teacher: Reyes Garcia Anesthesia Type: General Operative Notes Findings: Clip within the second specimen. Wire within the first specimen without the clip Specimen(s): other (left breast tissue) Estimated Blood Loss (mL): 30 Procedure in detail: The patient underwent needle localized prior to the operation. They were brought to the operating room and placed supine on the table. Bilateral lower extremity compression devices were applied. They were intubated with an LMA. They were prepped and draped in sterile fashion. Time-out was performed. A curvilinear incision on the inferior aspect of the left breast was made and subcutaneous tissues were divided. The localizing wire was identified and then brought back within the incision. The end of the wire was identified without a associated mass. Tissue surrounding the end of the wire was excised using electrocautery. The specimen was marked as follows Anterior Green Inferior Blue Lateral [place] Medial Yellow Posterior Black Superior Red Specimen was then passed off the field and sent to Radiology. The wire was identified within the in the tissue but not the clip. Careful inspection of the remaining breast tissue was made masses known to be less than half of a cm and was not palpable. We therefore excised further breast tissue within the medial aspect of the breast which was marked short stitch superior long stitch lateral. Within this additional specimen in the clip was identified. The subcutaneous tissue was then reapproximated with Vicryl. The skin was closed with Monocryl followed by application of Dermabond. The sponge and instrument count was correct. They emerged from anesthesia and were transfered to recovery in stable condition. Complications: none Post-operative Condition: stable Disposition: same day surgery
[2023-12-03] MEDS: OXYCODONE IR 5 MG TABLET PO ×2 (12:47→13:23)
[2023-12-03 12:55] VITALS: BP 119/65; BP 126/84; PULSE 69; PULSE 71; RESP 14; RESP 15; TEMP 37.1; O2SAT 95
[2023-12-03 13:03] VITALS: BP 137/61; PULSE 102; RESP 17; TEMP 36.9; O2SAT 97
== END 2023-12-03 13:32 | disposition home or self-care (01) ==
PROVIDERS: Family Provider Family Medicine; PCP Family Medicine; Referring Provider Surgery; Visit Provider Surgery
PROC: (CPT 19125; principal; 2023-12-03 10:00)
DX: C50.912 Malignant neoplasm of unspecified site of left female breast (principal); Z17.0 Estrogen receptor positive status [ER+]
CPT/HCPCS: 19125; 19281; 76098; 76642; 85610; C1819; J1100; J2405; J2704; J3010

== ENCOUNTER → 2024-01-12 11:26 | Outpatient (CLI) | payer MEDICARE, OTHER, SELFPAY ==
[2024-01-12 20:23] LABS: Alanine Aminotransferase 33 IU/L (<35); Albumin 4.2 g/dL (3.5-5.0); Albumin Globulin Ratio 1.6 (1.0-2.8); Alkaline Phosphatase 36 U/L (38-126); Aspartate Aminotransferase 39 IU/L (14-36); BUN Creatinine Ratio 27.6 (6-22); Bilirubin Total 0.6 mg/dL (0.2-1.3); Blood Urea Nitrogen 21 mg/dL (7-17); Calcium 8.9 mg/dL (8.4-10.2); Carbon Dioxide 23 mmol/L (22-32); Chloride 109 mmol/L (98-107); Estimated Glomerular Filt Rate > 60 mL/min (>60); Globulin 2.6 g/dL (1.7-4.1); Glucose 98 mg/dL (80-110); Potassium 4.1 mmol/L (3.4-5.1); Sodium 139 mmol/L (137-145); Total Protein 6.8 g/dL (6.3-8.2)
[2024-01-12 20:28] LABS: HEMOLYSIS 52 (0-50)
[2024-01-12 20:29] LABS: Hematocrit 43.9 % (36-46); Hemoglobin 14.6 g/dL (12.0-16.0); Mean Corpuscular HGB Conc 33.3 % (30-36); Mean Corpuscular Hemoglobin 32.9 PG (26-34); Mean Corpuscular Volume 98.8 fL (80-100); Platelet Count 186 X10^3/uL (150-400); Red Blood Cell Count 4.45 X10^6/uL (4.0-5.2); Red Cell Distribution Width 14.8 % (11.6-14.8); White Blood Cell Count 4.9 X10^3/uL (4.5-11.0)
[2024-01-12 20:40] LABS: LDL Cholesterol Direct 97 mg/dL (<100)
[2024-01-12 20:43] LABS: Add Manual Diff / Slide Review YES
[2024-01-12 21:41] LABS: Neutrophils Absolute Manual 3087 /uL (3000-5900); Total Cells Counted 100
[2024-01-12 21:44] LABS: Smudge Cells 1+
[2024-01-12 21:46] LABS: Vitamin D 25 Hydroxy (D3) 56.7 ng/mL (30.0-100.0)
[2024-01-12 22:00] LABS: TSH w/ Reflex to FT4 0.89 uIU/mL (0.47-4.68)
== END ==
PROVIDERS: Family Provider Family Medicine; PCP Family Medicine; Visit Provider Family Medicine
DX: I48.0 Paroxysmal atrial fibrillation (principal); M81.0 Age-related osteoporosis without current pathological fracture; E78.5 Hyperlipidemia, unspecified; Z93.2 Ileostomy status; Z79.01 Long term (current) use of anticoagulants
CPT/HCPCS: 80053; 82306; 83721; 84443; 85007; 85025

== ENCOUNTER → 2024-02-17 10:46 | Outpatient (CLI) | payer MEDICARE, OTHER, SELFPAY ==
--- NOTE | 2024-02-17 10:47 | DI.RAD.S_ITS ---
PROCEDURE: XR DEXA AXIAL SKELETON INDICATIONS: osteoporosis COMPARISON: [facility], CR, XR DEXA AXIAL SKELETON, 11/28/2021, 13:11. FINDINGS: Lumbar Spine: Bone mineral density is 0.658 g/cm2, T score -3.5. Since the most recent prior study, there has been no statistically significant change in bone mineral density. Left Hip: Bone mineral density is 0.634 g/cm2, T score -2.5. Prior DEXA was performed using dissimilar scan type or analysis method. Left Femoral Neck: Bone mineral density 0.580 g/cm2, T score -2.4. Right Hip: Bone mineral density 0.650 g/cm2, T score -2.4. Prior DEXA was performed using dissimilar scan type or analysis method. Right Femoral Neck: Bone mineral density is 0.624 g/cm2, T score -2.0. Fracture Risk Calculation (when applicable): FRAX score not reported due to T-score less than -2.5. (T score greater or equal to -1.0 to: NORMAL) (T score from -1.1 to -2.4: OSTEOPENIA) (T score less than or equal to -2.5: OSTEOPOROSIS) IMPRESSION: By WHO criteria, patient has osteoporosis. Follow-up guidelines as follows: Osteoporosis: Consider a repeat DEXA and Vertebral Fracture Assessment (VFA) exam in 2 years or sooner if medically necessary, to reassess this patient's status. Osteopenia: Consider a repeat DEXA in 2-3 years to reassess this patient's status, or if there is a new clinical indication. Normal: Consider a repeat DEXA in 5 years or sooner, or if there is a new clinical indication. All treatment decisions require clinical judgment and consideration of individual patient factors, including patient preferences, comorbidities, previous drug use, risk factors not captured in the FRAX model (e.g., frailty, falls, vitamin D deficiency, increased bone turnover, interval significant decline in bone density ) and possible under- or over-estimation of fracture risk by FRAX. In addition, the NOF Guide recommends that FDA-approved medical therapies be considered in postmenopausal women and men age >= 50 years with a: * Hip or vertebral (clinical or morphometric) fracture * T-score of <=-2.5 at the spine or hip * Ten-year fracture probability by FRAX of >= 3% for hip fracture or >=20% for major osteoporotic fracture. People with diagnosed cases of osteoporosis or at high risk for fracture should have regular bone mineral density tests. For patients eligible for Medicare, routine testing is allowed once every 2 years. The testing frequency can be increased to one year for patients who have rapidly progressing disease, those who are receiving or discontinuing medical therapy to restore bone mass, or have additional risk factors. Dictated by: Artemio Mirza M.D. on 02/17/2024 at 21:59 Approved by: Artemio Mirza M.D. on 02/17/2024 at 22:02
== END ==
PROVIDERS: Family Provider Family Medicine; PCP Family Medicine; Referring Provider Family Medicine; Visit Provider Family Medicine
DX: M81.0 Age-related osteoporosis without current pathological fracture (principal)
CPT/HCPCS: 77080

== ENCOUNTER → 2024-08-05 13:34 | Outpatient (CLI) | payer MEDICARE, OTHER, SELFPAY ==
[2024-08-05 22:17] LABS: Hematocrit 44.1 % (36-46); Hemoglobin 14.6 g/dL (12.0-16.0); Mean Corpuscular HGB Conc 33.2 % (30-36); Mean Corpuscular Hemoglobin 32.2 PG (26-34); Mean Corpuscular Volume 96.9 fL (80-100); Platelet Count 168 X10^3/uL (150-400); Red Blood Cell Count 4.55 X10^6/uL (4.0-5.2); Red Cell Distribution Width 14.7 % (11.6-14.8)
[2024-08-05 22:42] LABS: Neutrophils Absolute Manual 3250 /uL (3000-5900); RBC Morphology Normal Morphology; Total Cells Counted 100
[2024-08-05 22:46] LABS: Alanine Aminotransferase 39 IU/L (<35); Albumin 4.1 g/dL (3.5-5.0); Albumin Globulin Ratio 1.6 (1.0-2.8); Alkaline Phosphatase 57 U/L (38-126); Aspartate Aminotransferase 46 IU/L (14-36); Bilirubin Total 0.6 mg/dL (0.2-1.3); Bilirubin Unconjugated 0.4 mg/dL (0.0-1.1); Globulin 2.5 g/dL (1.7-4.1); HEMOLYSIS 28 (0-50); Total Protein 6.6 g/dL (6.3-8.2)
== END ==
PROVIDERS: PCP Family Medicine; Visit Provider Family Medicine
DX: R79.89 Other specified abnormal findings of blood chemistry (principal); R74.8 Abnormal levels of other serum enzymes; Z79.01 Long term (current) use of anticoagulants
CPT/HCPCS: 80076; 85025

== ENCOUNTER → 2024-12-10 11:05 | Outpatient (CLI) | payer MEDICARE, OTHER, SELFPAY ==
--- NOTE | 2024-12-10 11:08 | DI.US.S_ITS ---
MM diagnostic mammo BI, US breast LT limited: 12/10/2024 BI-RADS: 4B CLINICAL: 79-year old female for bilateral diagnostic mammogram and left diagnostic breast ultrasound. The patient presents for routine post-lumpectomy imaging. No Tyrer-Cuzick risk score calculation due to the patient's personal history of breast cancer. Patient reports a history of left breast carcinoma diagnosed at age 78. Status-post left lumpectomy. Current reported family history of breast cancer: sister. The patient had a prior left breast biopsy. PRIOR EXAMS 12/03/2023, 11/13/2023, 10/28/2023, 10/15/2023, 04/15/2023, 07/21/2018. MAMMOGRAPHY TECHNIQUE: 2D and 3D (tomosynthesis) digital mammographic views obtained, with additional images as needed for full coverage. Current study was also evaluated with a Computer Aided Detection (CAD) system. ULTRASOUND TECHNIQUE TARGETED Left Breast Ultrasound: Real-time ultrasound exam was performed focused to area of clinical and/or imaging concern. Real-time georges scale and color doppler imaging of the area of clinical interest was performed with image documentation. DENSITY B. There are scattered areas of fibroglandular density. MAMMOGRAPHY FINDINGS Right: No suspicious mass, asymmetry, microcalcification, or other abnormality seen. Left: Inner at 9:00, Middle depth, measuring 0.5cm: There is an oval mass present that has increased in size. Left: Post-surgical changes are present. ULTRASOUND FINDINGS Left: Inner at 9:00, Retroareolar, 2 cm from nipple, measuring 0.6 x 0.5 x 0.4 cm: There is an irregularly shaped, indistinct, hypoechoic mass that is non- parallel. The mass has increased in size. Doppler shows no vascularity. Left: Inner at 8:30, 5 cm from nipple, measuring 0.4 x 0.3 x 0.3 cm: There is a new oil cyst. Left: No abnormal lymph nodes are seen in the axilla. IMPRESSION: Right * No evidence of malignancy. Left (Mass): Inner at 9:00, Retroareolar, 2 cm from nipple, measuring 0.6 x 0.5 x 0.4 cm * Moderate Suspicion of Malignancy. RECOMMENDATIONS Left: Inner at 9:00, Retroareolar, 2 cm from nipple * Ultrasound-guided biopsy for further evaluation. OVERALL ASSESSMENT CATEGORY BI-RADS-4: Suspicious. ELECTRONICALLY SIGNED: Franky Call M.D. on 12/10/2024 at 03:17:17 PM PT Interpreting Station ID: [id number]
== END ==
PROVIDERS: PCP Family Medicine; Referring Provider Family Medicine; Visit Provider Family Medicine
DX: C50.912 Malignant neoplasm of unspecified site of left female breast (principal); N63.25 Unspecified lump in the left breast, overlapping quadrants; N60.02 Solitary cyst of left breast; Z85.3 Personal history of malignant neoplasm of breast; Z80.3 Family history of malignant neoplasm of breast; Z98.890 Other specified postprocedural states
CPT/HCPCS: 76642; 77066; G0279

== ENCOUNTER → 2025-02-24 12:58 | Outpatient (CLI) | payer MEDICARE, OTHER, SELFPAY ==
[2025-02-24 19:53] LABS: Hematocrit 42.7 % (36-46); Hemoglobin 14.6 g/dL (12.0-16.0); Mean Corpuscular HGB Conc 34.3 % (30-36); Mean Corpuscular Hemoglobin 33.2 PG (26-34); Mean Corpuscular Volume 96.9 fL (80-100); Platelet Count 237 X10^3/uL (150-400)
[2025-02-24 19:56] LABS: Alanine Aminotransferase 26 IU/L (<35); Albumin 4.0 g/dL (3.5-5.0); Albumin Globulin Ratio 1.5 (1.0-2.8); Alkaline Phosphatase 63 U/L (38-126); Blood Urea Nitrogen 18 mg/dL (7-17); Calcium 9.3 mg/dL (8.4-10.2); Carbon Dioxide 21 mmol/L (22-32); Chloride 106 mmol/L (98-107); Cholesterol 187 mg/dL (140-199); Estimated Glomerular Filt Rate > 60 mL/min (>60); Globulin 2.7 g/dL (1.7-4.1); Glucose 86 mg/dL (70-99); HDL Cholesterol 87 mg/dL (40-60); HEMOLYSIS 44 (0-50); Potassium 4.2 mmol/L (3.4-5.1); Sodium 136 mmol/L (137-145); Total Protein 6.7 g/dL (6.3-8.2); Triglycerides 89 mg/dL (35-150)
[2025-02-24 20:14] LABS: Vitamin D 25 Hydroxy (D3) 59.2 ng/mL (30.0-100.0)
[2025-02-24 20:28] LABS: Thyroid Stimulating Hormone 0.712 uIU/mL (0.47-4.68)
[2025-02-24 20:32] LABS: Ferritin 187 ng/mL (11-264)
[2025-02-24 20:39] LABS: Band Neutrophils Percent 3.0 % (3-7); Eosinophils Percent Manual 1.0 % (2-4); Lymphocytes Percent Manual 24.0 % (25-45); Monocytes Percent Manual 4.0 % (2-11); Neutrophils Absolute Manual 3905 /uL (3000-5900); RBC Morphology Normal Morphology; Segmented Neutrophils Percent 68.0 % (38-70); Total Cells Counted 100
== END ==
PROVIDERS: PCP Family Medicine; Visit Provider Family Medicine
DX: R79.89 Other specified abnormal findings of blood chemistry (principal); M81.0 Age-related osteoporosis without current pathological fracture; Z85.3 Personal history of malignant neoplasm of breast; I48.0 Paroxysmal atrial fibrillation; K50.119 Crohn's disease of large intestine with unspecified complications; Z79.01 Long term (current) use of anticoagulants; R03.0 Elevated blood-pressure reading, without diagnosis of hypertension; Z86.2 Personal history of diseases of the blood and blood-forming organs and certain disorders involving the immune mechanism; E78.2 Mixed hyperlipidemia
CPT/HCPCS: 80053; 80061; 82306; 82728; 84443; 85025

== ENCOUNTER → 2025-03-29 07:17 | Outpatient (CLI) | payer MEDICARE, OTHER, SELFPAY ==
--- NOTE | 2025-03-29 07:19 | DI.NM.S_ITS ---
PROCEDURE: NM ALINE PERF SPECT R&S PHARM Rest and pharmacological stress myocardial perfusion SPECT with gated imaging and ejection fraction RADIOPHARMACEUTICAL: 11.5 mCi Tc-99m tetrafosmin IV at rest and 25.9 mCi Tc-99m tetrafosmin IV at peak effect of pharmacological stress. Dwq-krh-lozjezkr was performed. INDICATIONS: PReOP for lumpectomy breast cancer TECHNIQUE: Radiopharmaceutical was injected at peak stress test, and also at rest. SPECT images were obtained. SPECT myocardial perfusion images were displayed in short axis, horizontal long axis, and vertical long axis views. Gated images were reviewed using [employer] software. COMPARISON: None. CARDIAC STRESS: A pharmacologic stress test was performed under the supervision of an attending staff, using an infusion of lexiscan 0.4mg IV X1. Hemodynamic data: There is normal blood pressure and heart rate response to pharmacologic stress. Symptoms: The patient denied anginal chest pain. Aminophylline: none EKG: No diagnostic changes of ischemia; no ectopy. FINDINGS: Raw data: There is good myocardial uptake of radiotracer. No significant motion artifacts. Qmgl-mk-gqpmr ratio is 0.21 (normal is less than 0.38 for tetrafosmin tracer). Left ventricle function: Gated images demonstrate normal left ventricular wall thickening. No segmental wall motion abnormalities. No transient ischemic dilation; TID is 0.85 (normal less than 1.3). Left ventricle resting end diastolic volume is 52 mL. Left ventricle stress ejection fraction is 96%; normal range is above 45%. Myocardial perfusion: There is normal distribution of activity in the right and left ventricular myocardium. No fixed or reversible perfusion defects. SSS 0. IMPRESSION: Low risk, normal pharm nuclear stress test from inducible ischemia standpoint. Normal left ventricular size, wall motion, and systolic function. No angina during the study. Dictated by: Moisés Feliz MD on 03/30/2025 at 12:38 Approved by: Moisés Feliz MD on 03/30/2025 at 12:41
--- NOTE | 2025-03-29 07:19 | DI.ECHO.S_ITS ---
[facility] : : [address] : [address] [address] : : [id number] : : Phone: [phone] Echocardiogram Report + + :Name: DARIA HOUSTON Study Date: 03/29/2025 Height: 61 in : :Hospital ReadingLocation: Weight: 127 lb : : Gender: Female BSA: 1.6 m2 : :: 1945 Age: 79 yrs BP: 129/88 mmHg: :Reason For Study: PREOP CLEARANCE : :Ordering Physician: MADY, : :GABINO Performed By: Margarito Dent : :Referring: GABINO EARL : + + Interpretation Summary The ejection fraction is estimated to be 65-70%. The left atrium is moderately dilated. There is mild tricuspid regurgitation. The right ventricular systolic pressure is estimated to be at least 47 mmHg based on an estimated right atrial pressure of 8 mm Hg. Procedure: A two-dimensional transthoracic echocardiogram with color flow and Doppler was performed. The study quality was technically adequate. Comparison is made with the echocardiogram of 07/02/2016. The patient was in normal sinus rhythm during the exam. Left Ventricle: The left ventricle is normal in size. Left ventricular wall thickness is borderline increased. There is no ventricular septal defect visualized. The ejection fraction is estimated to be 65-70%. There are no focal wall motion abnormalities. Diastolic parameters suggest probable normal left ventricular diastolic function and normal filling pressures. Right Ventricle: The right ventricle is normal in size and function. Atria: The left atrium is moderately dilated. Right atrial size is normal. There is no Doppler evidence for an interatrial shunt. Mitral Valve: There is moderate mitral annular calcification. The mitral valve leaflets appear mildly thickened. The mitral valve leaflets are mildly calcified. There is trace mitral regurgitation. Aortic Valve: The aortic valve is trileaflet. The aortic valve opens well. No aortic regurgitation is present. Tricuspid Valve: The tricuspid valve leaflets are thin and pliable. There is mild tricuspid regurgitation. The right ventricular systolic pressure is estimated to be at least 47 mmHg based on an estimated right atrial pressure of 8 mm Hg. Pulmonic Valve: The pulmonic valve leaflets are thin and pliable; valve motion is normal. There is trace pulmonic regurgitation. Great Vessels: The aortic root is normal size. The ascending aorta is mildly enlarged. The pulmonary artery is normal size. The IVC is dilated (diameter is greater than 2.1 cm) yet it collapses greater than 50% with a sniff. This suggests a right atrial pressure of 8 mm Hg. Pericardium/ Pleura There is no pericardial effusion. There is no pleural effusion. MMode/2D Measurements & Calculations LVIDd: 2.9 cm LVOT diam: 2.0 cm LVIDs: 1.7 cm Ao root diam: 3.3 cm FS: 42.1 % asc Aorta Diam: 4.0 cm EPSS: 0.68 cm IVSd: 1.1 cm LVPWd: 0.89 cm LV gaming. diameter/BSA (cm/m^2): 1.9 LV sys. diameter/BSA (cm/m^2): 1.1 LA A2 area: 22.5 cm2 RA long axis: 5.3 cm LA A4 area: 23.1 cm2 RA area: 15.5 cm2 LA length (vol): 5.8 cm RA vol: 38.3 ml LA vol: 76.1 ml RA : 24.6 ml/m2 LA vol index: 48.8 ml/m2 IVC diam: 2.3 cm RVD1 (basal): 2.8 cm RVD2 (mid): 2.0 cm TAPSE: 2.7 cm Doppler Measurements & Calculations Ao V2 max: 131.9 cm/sec LVOT Max Grant: 100.9 cm/sec Ao V2 mean: 90.7 cm/sec LV V1 max P.1 mmHg Ao max P.0 mmHg LV V1 VTI: 21.6 cm Ao mean P.7 mmHg KY(I,D): 2.4 cm2 Ao V2 VTI: 28.7 cm KY(V,D): 2.4 cm2 sev ratio: 0.75 KY indexed to BSA (cm^2/m^2): 1.5 MV E max grant: 112.3 cm/sec TR max grant: 314.5 cm/sec MV A max grant: 69.3 cm/sec TR max P.6 mmHg MV E/A: 1.6 PA V2 max: 84.5 cm/sec Med Peak E' Grant: 7.9 cm/sec PA V2 mean: 58.1 cm/sec E/E' med: 14.3 PA mean P.5 mmHg Lat Peak E' Grant: 5.5 cm/sec PA pr(Accel): 58.4 mmHg E/E' lat: 20.4 E/e' average: 17.3 MV dec time: 0.14 sec SVLVOT): 68.0 ml Reading Physician:02:58 PM
== END ==
PROVIDERS: PCP Family Medicine; Referring Provider Family Medicine; Visit Provider Family Medicine
DX: I07.1 Rheumatic tricuspid insufficiency (principal); I77.89 Other specified disorders of arteries and arterioles; I48.0 Paroxysmal atrial fibrillation; C50.919 Malignant neoplasm of unspecified site of unspecified female breast; C50.812 Malignant neoplasm of overlapping sites of left female breast; Z17.0 Estrogen receptor positive status [ER+]; Z79.01 Long term (current) use of anticoagulants
CPT/HCPCS: 78452; 93017; 93306; A9502; J2785

== ENCOUNTER → 2025-04-13 07:08 | Outpatient (CLI) | payer MEDICARE, OTHER, SELFPAY ==
--- NOTE | 2025-04-13 07:09 | DI.MG.S_ITS ---
MM needle loc LT: 04/13/2025. CLINICAL: 79-year old female for left procedure. No Tyrer-Cuzick risk score calculation due to the patient's personal history of breast cancer. Patient reports a history of left breast carcinoma diagnosed at age 78. Status-post left lumpectomy. Current reported family history of breast cancer: sister. The patient had a prior left breast biopsy. CONSENT Risks including but not limited to bleeding and infection, benefits and alternatives were discussed with the patient. The patient agreed to the procedure and signed informed consent. Time out procedure was used. ROUTINE Left: Patient positioned in the supine or supine-oblique position, prepped and draped in the usual manner using sterile technique. TECHNIQUE Left Breast: Inner at 9:00, 2 cm from nipple, Posterior: Procedure: Ultrasound-guided needle-wire localization and [place](R) Vision marker. Device: 5 cm Kopans style needle-wire assembly. Approach: Medial. Anesthesia: Local anesthesia obtained using 6 ml 1%-lidocaine. Skin Entry: Incision with #11 blade. Specimen Imaging: Imaging shows marker present within specimen. Post-procedure imaging: Post-procedure imaging confirms wire to be in target location with distal portion of the wire extending 1 cm beyond the lesion. Conclusion: Ultrasound-guided Needle-wire localization with post- procedure CC and ML mammographic views. COMPLICATIONS: No complications were encountered while the patient was in our department. DISPOSITION The patient left our department in good condition with aftercare instructions and urged to contact us should any problem arise. SUMMARY Left Breast: Inner at 9:00, 2 cm from nipple, Posterior: Ultrasound- guided needle-wire localization of [place](R) Vision marker. ELECTRONICALLY SIGNED: Manuel Ocampo on 04/14/2025 at 11:15:28 AM PT
--- NOTE | 2025-04-13 08:04 | DI.MG.S_ITS ---
PROCEDURE: MM SURGICAL SPECIMAN LT INDICATIONS: [place] TECHNIQUE: Intraoperative film of the breast surgical specimen acquired. COMPARISON: [facility], , SURGICAL SPECIMEN LT, 12/03/2023, 12:00. FINDINGS: Tip of the localizing wire is present. IMPRESSION: Dictated by: Manuel Ocampo M.D. on 04/14/2025 at 12:22 Approved by: Manuel Ocampo M.D. on 04/14/2025 at 12:27
== END ==
LOC: MAMMO 07:09
PROVIDERS: PCP Family Medicine; Referring Provider Surgery; Visit Provider Surgery
DX: C50.812 Malignant neoplasm of overlapping sites of left female breast (principal); Z17.0 Estrogen receptor positive status [ER+]; Z80.3 Family history of malignant neoplasm of breast
CPT/HCPCS: 19281; 76098; C1819

== ENCOUNTER 2025-04-13 07:10 | Day surgery (SDC) | payer MEDICARE, OTHER, SELFPAY ==
[2025-03-31 08:16] VITALS: BMI 24.1
[2025-04-13] VITALS (10 sets, daily range): BP systolic 117–135; BP diastolic 58–76; PULSE 74–95; RESP 15–20; TEMP 36.3–36.9; O2SAT 93–198; BMI 23.6
--- NOTE | 2025-04-13 | PATH_ITS ---
[facility] Accession Number: [id number] No. of containers..01 Tissue . 01 Material submitted: . breast - LEFT BREAST . 01 Diagnosis: LEFT BREAST, PARTIAL MASTECTOMY (WEIGHT 30 GRAMS): Invasive carcinoma of the breast. Please see case summary. . CASE SUMMARY: Procedure: Excision (less than total mastectomy). . Specimen laterality: Left. . Tumor site: 9 o'clock, retroareolar, 2 cm from nipple per written ultrasound report 02-07-25. . 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 . Histologic grade: Glandular/tubular differentiation: 2/3. Nuclear pleomorphism: 3/3. Mitotic rate: 2/3. Overall grade: Grade 2 (score 7/9). . Tumor size: 7 x 5 x 4 mm. Tumor focality: Single focus of invasive carcinoma. Ductal carcinoma in situ: Not identified. Tumor extent: Skin and skeletal muscle not applicable. Skin invasion: Not applicable. Lymphovascular invasion: Not identified. Dermal lymphovascular invasion: Not applicable. . Microcalicification: Rare, minute microcalcifications present and are associated with invasive tumor and with benign ductal epithelium. . Regional lymph nodes: Not applicable / not submitted. . Margins: Margin status for invasive carcinoma: All margins negative for invasive carcinoma; close posterior margin. Nearest margin is posterior (less than 1 mm from invasive tumor). Anterior: Greater than 10 mm. Posterior: Less than 1 mm from invasive tumor. Superior: Greater than 10 mm. Inferior: Greater than 10 mm. Medial: Greater than 10 mm. Lateral: 2 mm (postero-lateral). . Regional lymph node status: Not applicable. Distant sites involved: Not applicable. . . pTNM classification (AJCC, 8th edition): pT1b, pN not assigned, pM not applicable. . Additional pathologic findings: Guidewire at gross examination, georges intraoperative clamp at gross examination, biopsy clip at gross examination (slice 7), changes consistent with previous instrumentation, benign fibroadenomatous changes adjacent to tumor. . Predictive marker immunohistochemical studies are performed on block A3 with the invasive carcinoma showing the following features: . Estrogen receptor (SP1): Positive (91-100%, strong intensity). Progesterone receptor (1E2): Positive (61-70%, moderate intensity). Her2 (4B5): Negative (1+). Ki-67 (MIB1): Low (approximately 5% average). . Internal controls for ER and VT are positive. Cold ischemic time cannot be calculated. Total fixation time is 29 hours. The scoring criteria for breast biomarkers by immunohistochemistry is based on the ASCO/CAP guidelines (Donna AC et al, J Clin Oncol: 2017Dec 30;36(20):6626-4567 and Virgilio AGARWAL et al, Arch Pathol Lab Med: 2009;134(6):907-22). Deparaffinized sections of formalin fixed tissue (along with appropriate positive controls) are incubated with the above antibody(s). Using the automated [place] stainer, tissue is incubated with the designated antibody which is then localized by a non-biotin, dual polymer detection system. The external controls are reviewed for appropriate reactivity and found to be adequate. Results on the target cell population are indicated above. These tests have not been validated on decalcified tissue. [facility] 04/21/2025 1502 Local . 01 Comment: Slides A3 and A11 of this case were also reviewed by Dr. Patel Gibbons (Julie), who agrees with the interpretation. . 01 Electronically signed: . Patrizia Montesinos MD, Pathologist NPI- [id number] . 01 Gross description: . Received in formalin labeled with two patient identifiers and left breast tissue. . Specimen: Left partial mastectomy. Weight: 30 grams. Measurements: 6.5 cm superior to inferior, 5.5 cm medial to lateral, and 2.0 cm anterior to posterior. Skin ellipse: No skin is present. Wire: Present; penetrating the medial aspect of the specimen and terminating in the lateral aspect. In addition, there is a georges intraoperative surgical clip which is at the mid aspect of the lateral margin. The specimen is further disrupted inferiorly. Margins: The specimen is inked as follows: green anterior, blue inferior, orange medial, yellow lateral, black posterior, and red superior. The inking schematic has been confirmed with Dr. Hendrix On 04/14/2025 at 12:44 p.m. Lesions: There is a single white, gritty, discrete mass measuring 0.6 x 0.5 x 0.4 cm with an adjacent radiographic clip. The specimen has been sliced from medial to lateral into eight slices, and the mass is involving slice 7, and the radiographic clip is also identified in slice 7. The lesion is further located 0.3 cm to the lateral yellow-inked margin, 0.5 cm to the inferior blue-inked margin, 0.6 cm to the anterior green-inked margin, 1.0 cm to the deep black-inked margin, 2.5 cm to the medial orange-inked margin, and 4.5 cm to the superior red-inked margin. The remaining breast tissue has a 0.6 cm in greatest dimension, hemorrhagic, slightly membranous texture located in slice 8 abutting the mass laterally. The remaining breast tissue is composed of about 10% fibrous tissue admixed with yellow, lobulated, unremarkable adipose tissue. No additional masses or lesions are identified. Fixation time: The specimen was placed in formalin arbitrarily at 9 a.m. on 04/13/2025 for a total fixation time of 29 hours. . Sections: A1: Slice 8, inferior half beginning of lateral (perpendicular sections). A2: Slice 7, mass entirely submitted including anterior, inferior, and lateral margin. A3-A4: Mid and superior aspect of slice 7 (slice 7 entirely submitted). A5: Slice 6, inferior half (medial) with no identifiable tumor. A6-A7: Medial and superior aspect of slice 6 entirely submitted (additional superior, deep, and anterior margins present). A8: Mid section to include fibrous tissue of slice 5. A9: Inferior half of slice 4. A10: Slice 1, medial margin (perpendicular section). A11: Additional lateral margin from slice 8 mid aspect (perpendicular sections). ([id number]) /CHANI 04/14/2025 2130 Local . 01 Microscopic: . An immunohistochemistry panel is performed to further evaluate the cells of interest. The control stains show appropriate reactivity. . RESULTS: Block A11 P63: Absent in region of interest, mitigates against the presence of ductal carcinoma in situ. Myosin: Absent in region of interest, mitigates against the presence of ductal carcinoma in situ. GATA3: Present at focus of interest, consistent with tumor of breast origin. CD31: Negative in region of interest, mitigates against vascular invasion. D240: Negative in region of interest, mitigates against lymphovascular involvement. . Block A5 CK5/6: Mosaic pattern, mitigates against the presence of ductal carcinoma in situ. ER: Variable, mitigates against the presence of ductal carcinoma in situ. . * This test was developed and the performance characteristics were validated by [employer]. It has not been cleared or approved by the U.S. Food and Drug Administration. . 01 Pathologist provided ICD-10: C50.912 . 01 CPT . 855737, R79628, F99027, 344187 Specimen Comment: A courtesy copy of this report has been sent to [phone] Performed at: [address] [address], [place], [place] [id number] MD Juan J Carrero MD Phone: [phone]
[2025-04-13] MEDS: LACTATED RINGERS 1,000 ML 42 ML IV (07:37)
[2025-04-13] MEDS: ACETAMINOPHEN 325 MG TABLET 650 MG PO (07:42)
--- NOTE | 2025-04-13 12:11 | P.HP_ITS ---
History of Present Illness History of Present Illness Date Patient Seen: 04/13/25 Time Patient Seen: 12:11 Chief complaint: Left Breast Biopsy W/Needle Localization Narrative: Lolis is a 70 year old woman with left breast cancer. See office note from February for details. [facility] Medical History (Updated 03/13/25 @ 19:23 by Jen Danielson MD) Sebaceous cyst Wears glasses Allergies Osteoporosis Mumps Measles Herpes Chicken pox Cardiac arrhythmia Other herpesviral infection Anticoagulated on warfarin (07/12/16) Paroxysmal atrial fibrillation (05/12/15) Ileostomy present (05/27/16) Surgical History (Updated 11/04/24 @ 15:12 by Jen Danielson MD) Anesthesia History of tonsillectomy S/P colectomy (~1977) History of hysterectomy (~1978) S/P colectomy (~1974) Status post ablation of atrial flutter (07/12/16) Family History Father Sepsis Mother Stroke Grandfather Cancer Grandmother Fall Social History (Updated 12/16/24 @ 07:41 by DINA Howell) marital status: number of children: 0 household members: none lives independently: Yes caregiver/support person: No housing: house pets and animals: Yes (a wonderful cat) education level: college occupational status: employed current occupational exposures/hazards: No special jassi needs: No travel history: over 6 months ago sexual history: none after widowhood leisure activities: music, games and volunteer work other: [employer] seatbelt use: always helmet use: No water heater temp set < 120 deg: Yes working smoke detector in home: Yes fire extinguisher in home: Yes carbon monox detector in home: Yes firearms in home: No do you feel safe at home: Yes Smoking Status: Former smoker Tobacco: How many years used: 13 quit status: quit date established second hand exposure: No alcohol intake: never substance use type: marijuana during the past year weight has: remained stable well-balanced diet: rarely or never daily servings fruits/ve-1 caffeine: Yes (iced tea) eating out: other Type(s) of exercise: walking and sedentary lifestyle frequency: 1-2 times per week duration: < 15 minutes/day Meds Home Medications and Allergies Home Medications ?Medication ?Instructions ?Recorded ?Confirmed ?Type multivitamin (Multiple Vitamins ##0 09/19/16 03/11/25 History tablet) vitamins A,C,I-tuai-jtnibc 4,296 1 sgl PO ##0 09/19/16 03/11/25 History mcg-226 mg-90 mg capsule (PreserVision AREDS) gckoz-1k-noh-epa-fish oil-D3 [De3 PO 01/12/21 03/11/25 History Dry Eye [place] Benefits] cholecalciferol (vitamin D3) 50 50 mcg PO Q OTHER DAY #0 tabs 10/26/21 04/13/25 History mcg (2,000 unit) tablet (Vitamin D3) metoprolol succinate 50 mg 50 mg PO DAILY For blood pr essure 06/24/24 04/13/25 Rx tablet,extended release 24 hr and heart #90 tabs flecainide 50 mg tablet 50 mg PO Q12H For heart rhyt hm 07/03/24 04/13/25 Rx #180 tabs atorvastatin 20 mg tablet 20 mg PO QPM cholesterol. pr events 12/17/24 03/11/25 Rx heart attack and stroke #90 tabs alendronate 70 mg tablet 70 mg PO QWEEK Osteoporosis #12 03/11/25 04/13/25 Rx tabs warfarin 2.5 mg tablet 8 mg PO DAILY Blood thinner. 04/13/25 04/13/25 History Allergies Allergy/AdvReac Type Severity Reaction Status Date / Time diltiazem (DILTIAZEM) Allergy Mild SKIN RASH Verified 04/13/25 07:37 Penicillins (PENICILLINS) Allergy Mild HIVES ON Verified 04/13/25 07:37 PALMS AND FEET Sulfa (Sulfonamide Allergy Mild HIVES ON Verified 04/13/25 07:37 Antibiotics) (SULFA PALMS AND (SULFONAMIDE ANTIBIOTICS)) FEET azithromycin AdvReac Verified 04/13/25 07:37 Exam Vital Signs (past 8 hours): - 04/13/25 07:58 Temperature 98.5 F Pulse Rate 74 Respiratory Rate 16 Blood Pressure 122/69 Pulse Oximetry 96 Oxygen Delivery Method Room Air Oxygen Delivery Method Room Air Const General: No acute distress Assessment & Plan Assessment and plan (1) Breast cancer, left: Qualifiers: Breast location: overlapping sites of breast Estrogen receptor status: positive Patient sex: female Qualified Code(s): C50.812 - Malignant neoplasm of overlapping sites of left female breast; Z17.0 - Estrogen receptor positive status [ER+] Status: Acute Plan Left breast wire localization lumpectomy Time-Based Coding :: [TOTAL MINUTES] spent with patient and on the chart (including review of chart, obtaining history, exam, reviewing outside data, placing orders, documenting exam and treatment plan, and counseling patient) on [DATE]. 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
--- NOTE | 2025-04-13 13:04 | SUR.OPER ---
Supine on padded OR bed, head on pillow, arms secured on padded arm boards. operative arm at <90 degrees abduction, non-operative arm resting at side and secured. Legs uncrossed, safety belt at thigh. Provider approved final positioinging
--- NOTE | 2025-04-13 14:06 | PM.OP.1 ---
Operative Date/Time/Diagnoses Date of procedure: 04/13/25 Time of procedure: 14:06 Pre-op diagnosis: Left breast cancer Post-op diagnosis: same Procedure & Clinicians Procedure: Wire localization left lumpectomy Same procedure(s) as scheduled: Yes Indications: Left breast cancer Surgeon: Dez Hendrix Assisted?: Yes Substance Abuse Counselor: Reyes Garcia Anesthesia Type: General Operative Notes Findings: NA Applied: none Estimated Blood Loss (mL): 5 Procedure in detail: The patient had a wire localization performed at Radiology prior to arrival in the perioperative area. The patient was brought to the operating room, placed on the table in the supine position, general anesthesia was induced. Arms were abducted on arm boards. The left breast was prepped and draped in the usual fashion. A time-out was performed. We made a 7 cm incision across the medial breast and across the superior edge of the areolar border. We created flaps superior and inferior to the incision and then dissected down to the chest wall keeping the wire within the center portion of specimen. An old seroma cavity was encountered with the tip of the wire extending just into the seroma cavity. Dissection was carried down around the tip of the wire to the pectoralis fascia. The specimen was excised with the wire intact. The specimen was oriented and painted with the margin marker in the following manner: Green: anterior Blue: Inferior [place]: Lateral Yellow: Medial Black: Posterior Red: Superior The specimen was sent to Radiology for specimen mammogram. We then irrigated the wound cavity with sterile saline. Local anesthetic was injected into the muscle layer of the lumpectomy site. A few bleeders were cauterized. Once the wound cavity was hemostatic we injected some local anesthetic into the dermis and closed the incision in layers using multiple interrupted 3-0 Vicryl dermal sutures followed by a running 4-0 Monocryl subcuticular closure. Radiology called the OR reporting that the clip was visualized within the specimen. Steri-Strips were applied followed by dry gauze and a breast binder. EBL: 10 mL Complications: none Post-operative Condition: stable Disposition: PACU
[2025-04-13] MEDS: IBUPROFEN 600 MG TABLET PO (15:56)
[2025-04-14] MEDS: MELATONIN 3 MG TABLET 6 MG PO (00:10)
[2025-04-14 08:39] VITALS: BP 114/60; PULSE 75; RESP 14; TEMP 36.1; O2SAT 96
--- NOTE | 2025-04-14 10:46 | PC.NURSE ---
Patient is A&Ox4, VSS, afebrile. She reports pain is very minimal 0-2 /10. She is evaluated by MD Hendrix at bedside and cleared medically for discharge home today. She verbalizes understanding of activity restrictions, site care, medications and follow up instructions. She is escorted via w/ch to hospital entrance, where NATURAL RESOURCES ENGINEER waits with patient to catch [employer] taxi to take her to [facility] for discharge home back to [facility] today at 1015.
--- NOTE | 2025-04-14 11:26 | CM.DANOTE ---
Patient is a 79 yo female who was admitted OBS Status on 04/13/25 after [facility] planned Breast Biopsy/lumpectomy. Pt has [facility] and [facility] for insurance and her PCP is Jen Danielson at [facility]. EMR was reviewed. Per Surgeon, pt developed hypoxia post surgical intervention and was placed on oxi-mask and admitted for observation but able to wean to room air this morning and medically stable to discharge home today with outpt f/u and orders placed. Per RN, pt resides on [facility] and was independent in room and no concerns noted and discharge instructions provided and pt left this morning to catch an early ferry back to [facility]. No needs. No hx of recent admits. ALBER Iyer Discharge Planning/Care Management Pre-Anesthesia Assessment. Start: 03/31/25 08:16 Freq: Status: Discharge Protocol: Document 03/31/25 08:16 LB (Rec: 03/31/25 08:23 LB [id number]) Pre-Anesthesia Assessment PAC Comment 03/31/25 Chart review. Patient Information Chart Review Reviewed Via Diagnostic Results BMP/CMP,CBC,PT/INR Comment 02/24/25 at . Primary Care Jen Danielson Provider Seen Specialist in Yes Last 12 Months Specialist Seen Nail Feeder,General surgeon Primary Language Marshallese Preferred Language Marshallese Switchgear Repairer Required No Height 154.94 cm Weight 58.06 kg Body Mass Index (BMI 24.1 ) Visual Assist Glasses Hx Family Anesthesia Yes: Sister - PONV Reaction Anesthesia Review Yes Requested Dining Room Hostess Yes alcohol intake never Smoking Status Former smoker how long ago did Quit 1976. patient quit smoking Substance Use Type [ marijuana #R] Patient is No completely paralyzed or completely immobile Is patient on oxygen No ? Hx Sleep Apnea No Currently Taking a Yes: Metoprolol 50mg daily. Beta Julieta Anti-Coagulant Yes: Warfarin daily - awaiting anticoag form. Therapy Has a Nail Feeder Yes Nail Feeder name Dr Dahl - [facility]. Cardiac Testing Yes: Echo, nuc med 2024. Hx Pacemaker/ICD No Hx Urinary Self No Catheterization Diabetes No Patient No Lactating No Presence of external Yes: Ileostomy. or internal medical devices? Received a COVID Yes vaccine? Marital Status / Lives With none Patient Discharge Return Home Plan Description Emergency Contact Mckenna Catalan - friend Name Emergency Contact [phone] Phone Number Advance Directives? No
== END 2025-04-14 10:15 | disposition home or self-care (01) ==
LOC: OR 07:11 → AC 07:11
PROVIDERS: PCP Family Medicine; Referring Provider Surgery; Visit Provider Surgery
PROC: (CPT 19301; principal; 2025-04-13 12:15)
DX: C50.912 Malignant neoplasm of unspecified site of left female breast (principal); Z17.0 Estrogen receptor positive status [ER+]; Z87.891 Personal history of nicotine dependence; C50.812 Malignant neoplasm of overlapping sites of left female breast; Z80.3 Family history of malignant neoplasm of breast
CPT/HCPCS: 19301; 19281; 76098; C1819; J1100; J2405; J2704; J3010; J7120